=== PATIENT | female | born 1935 | race Caucasian/White ===

== ENCOUNTER 2018-01-02 14:59 | Emergency (ER) | payer OTHER, BC ==
[~2018-01-02] VITALS: Ht 162.6 cm; Wt 67.2 kg
[~2018-01-02 14:59] MED LIST: Antivert PO; HYDROCODON-ACE1 EAC7 PO; Levothroid,Synthroid PO; Oscal 500 w/Vitamin PO; Phenergan; Protonix PO; Senokot S,Pericolace PO; Theragran PO; Tylenol Regular Stre PO
[2018-01-02 15:34] LABS: HEMOGLOBIN 12.6 G/DL (11.9-15.5); MCH 27.8 PG (29.0-34.0); MCHC 32.3 G/DL (30.0-36.0); MCV 85.9 FL (83-99); PLATELET COUNT 403 K/uL (156-360); RBC DIS.WIDTH-CV 14.7 % (11.8-14.6); RBC DIS.WIDTH-SD 46.5 % (39-53); RED BLOOD COUNT 4.54 M/uL (3.80-5.20); WHITE BLOOD COUNT 9.4 K/uL (4.1-10.2)
[2018-01-02 15:44] LABS: CHLORIDE 106 mEq/L (99-109); POTASSIUM 3.5 mEq/L (3.7-5.4); SODIUM 141 mEq/L (136-147)
[2018-01-02 15:46] LABS: GLUCOSE 125 mg/dL (70-99)
[2018-01-02 15:50] LABS: CREATININE 0.8 mg/dL (0.6-1.3); GFR ESTIMATE (CALCULATED) > 59 mL/min/
[2018-01-02 15:51] LABS: UREA NITROGEN (BUN) 17 mg/dL (9-23)
[2018-01-02 17:53] LABS: TROP-I INTERPRETATION NEGATIVE; TROPONIN-I < 0.01 ng/mL (0.0-0.30)
[2018-01-02] MEDS ORDERED: ZITHROMAX250 MG PO (20:46)
[2018-01-02] MEDS ORDERED: VENTOLIN HFA18 GM IH (20:48)
[2018-01-02] MEDS ORDERED: TESSALON PERLE100 MG PO (20:48)
[2018-01-02 21:31] VITALS: BP 122/81
== END 2018-01-02 21:34 | disposition home or self-care (01) ==
LOC: EME 14:59
PROVIDERS: Nurse Practitioner Family
DX: J40 Bronchitis, not specified as acute or chronic (principal); E03.9 Hypothyroidism, unspecified; F32.9 Major depressive disorder, single episode, unspecified; Z87.891 Personal history of nicotine dependence; Z88.5 Allergy status to narcotic agent; Z88.2 Allergy status to sulfonamides; Z88.0 Allergy status to penicillin
CPT/HCPCS: 71046; 71275; 80048; 84484; 85027; 87502; 93005; 99281; 99285